=== PATIENT | male | born 1995 ===

== ENCOUNTER 2023-09-08 04:40 | Emergency (ER) | payer BC ==
[~2023-09-08] VITALS: Ht 170.2 cm; Wt 90.7 kg
[2023-09-08 05:35] LABS: BASOPHILS # (AUTO) 0.1 K/UL (0.0-0.2); BASOPHILS % (AUTO) 0.6 % (0.0-2.0); EOSINOPHILS # (AUTO) 0.1 K/uL (0.0-0.7); EOSINOPHILS % (AUTO) 0.5 % (0.0-7.0); HEMOGLOBIN 15.6 g/dL (12.5-16.3); LYMPHOCYTES % (AUTO) 20.2 % (20.5-51.5); MEAN CORPUSCULAR HEMOGLOBIN 30.4 uug (23.8-33.4); MEAN CORPUSCULAR HGB CONC 35 g/dL (32.5-36.3); MEAN CORPUSCULAR VOLUME 88.1 fL (73.0-96.2); MONOCYTES # (AUTO) 0.4 K/uL (0.1-1.30); MONOCYTES % (AUTO) 3.7 % (0.0-11.0); NEUTROPHILS # (AUTO) 7.3 K/uL (1.8-8.9); PLATELET COUNT (AUTO) 322 K/uL (152-348); RED BLOOD CELL COUNT(AUTO) 5.11 MIL/uL (4.06-5.63); RED CELL DISTRIBUTION WIDTH 13.7 % (12.1-16.2); WHITE BLOOD COUNT (AUTO) 9.8 K/uL (3.6-10.2)
[2023-09-08 05:42] LABS: DIFFERENTIAL COMMENT 1
[2023-09-08 05:47] LABS: CALCIUM 9.2 mg/dL (8.5-10.1); CARBON DIOXIDE 21 mmol/L (21-32); CHLORIDE 102 mmol/L (98-107); GLUCOSE 115 mg/dL (74-106); POTASSIUM 3.7 mmol/L (3.5-5.1); SODIUM SERUM 136 mmol/L (136-145); UREA NITROGEN, BLOOD 9 mg/dL (7-18)
[2023-09-08 06:00] LABS: ALANINE AMINOTRANSFERASE 44 U/L (16-63); ALBUMIN 4.1 g/dL (3.4-5.0); ALKALINE PHOSPHATASE 45 U/L (50-136); ASPARTATE AMINOTRANSFERASE 13 U/L (15-37); BILIRUBIN,TOTAL 0.3 mg/dL (0.2-1.0); NT-PRO BNP 14 pg/mL (0-125); TOTAL PROTEIN, SERUM 8.3 g/dL (6.4-8.2)
[2023-09-08 06:19] LABS: BILIRUBIN,DIRECT < 0.1 mg/dL (0.0-0.2)
[2023-09-08 06:58] VITALS: BP 129/65; O2SAT 98
== END 2023-09-08 06:57 | disposition home or self-care (01) ==
LOC: ER 04:42
DX: R00.0 Tachycardia, unspecified (principal); F17.210 Nicotine dependence, cigarettes, uncomplicated
CPT/HCPCS: 36415; 71045; 84484; 85025; 85730; 93005; A4606; A4663